=== PATIENT | male | born 1955 | race African-American/Black ===

== ENCOUNTER 2021-03-11 18:47 | Inpatient (IN) ==
[2021-03-11] MEDS ORDERED: ACETAMINOPHEN 500 MG TABLET PO STA (20:41)
[2021-03-11 20:45] LABS: Basophils # 0.1 10*3/uL (0.0-0.2); Basophils % 0.5 % (0.0-0.8); Hematocrit 48.1 VOL% (42.0-52.0); Hemoglobin 15.8 GM/DL (14.0-18.0); Immature Granulocytes % 0.5 %; Immature Granulocytes Absolute 0.08 #; Lymphocytes # 0.7 10*3/uL (1.4-4.0); Mean Corpuscular HGB Conc 32.8 GM/DL (32-36); Mean Corpuscular Volume 89.9 FL (87-102); Mean Platelet Volume 12.9 FL (9.6-12.0); Monocytes % 5.7 % (1.7-12.7); Neutrophils % 89.3 % (38.7-73.9); Platelet Count 179 T/CUMM (130-400); Red Blood Count 5.35 MC/CUMM (3.8-5.5); Red Cell Distribution Width 13.7 % (9.3-17.3); White Blood Count 16.4 T/CUMM (4-12)
[2021-03-11 21:01] LABS: INR 1.2; PT Patient Result 13.7 SECS (10.5-12.0); Partial Thromboplastin Time 29.3 SECS (23.8-32.1)
[2021-03-11 21:09] LABS: Albumin 3.6 G/DL (3.4-5.0); Bilirubin,Total 0.9 MG/DL (0.20-1.00); Calcium 9.8 MG/DL (8.5-10.1); Potassium 3.6 MMOL/L (3.5-5.1); Total Protein 7.8 G/DL (6.4-8.2)
[2021-03-11] MEDS ORDERED: SODIUM CHLORIDE 0.9% 3,000 ML IV STA (21:11)
[2021-03-11 21:14] LABS: Band Neutrophils 1 % (0-10); Eosinophils 1 % (0-10); Lymphocytes 6 % (20-55); Platelet Estimate Adequate; Segmented Neutrophils 86 % (50-85); Total Cells Counted 100
[2021-03-11] MEDS ORDERED: PIPERACILLIN/TAZOBACTAM 3,375 MG in SODIUM CHLORIDE 0.9% 100 ML IV STA (21:33)
[2021-03-11 22:34] LABS: Bacteria,Urine Many /HPF (Few); Bilirubin,Urine Negative (Negative); Blood, Urine Large mg/dL (Negative); Glucose,Urine (UA) Negative (Negative); Ketones,Urine Negative (Negative); Mucus,Urine Occasional /LPF (Occasional); Nitrite,Urine Positive (Negative); Protein,Urine 100 MG/DL; RBC,Urine 382 /HPF (0-4); Urine Appearance CLOUDY (Clear); Urine Color Amber (Yellow); Urine Specific Gravity 1.017 (1.001-1.035); Urine Urobilinogen < 2.0 EU/DL (0.2-1.0)
[2021-03-11] MEDS ORDERED: IBUPROFEN 600 MG TABLET PO PRN (23:36)
[2021-03-11] MEDS ORDERED: ONDANSETRON 4 MG/2 ML VIAL IV PRN (23:36)
[2021-03-12] MEDS: SODIUM CHLORIDE 0.9% 1,000 ML IV SCH ×3 (00:58→17:05)
[2021-03-12] MEDS: ACETAMINOPHEN 325 MG TABLET PO PRN ×4 (01:28→20:38)
[2021-03-12] MEDS: PIPERACILLIN/TAZOBACTAM 3,375 MG in SODIUM CHLORIDE 0.9% 100 ML IV SCH ×3 (05:19→20:40)
[2021-03-12 05:50] LABS: Basophils # 0.1 10*3/uL (0.0-0.2); Basophils % 0.3 % (0.0-0.8); Eosinophils % 0.1 % (0.00-10.9); Hemoglobin 15.2 GM/DL (14.0-18.0); Immature Granulocytes % 0.4 %; Immature Granulocytes Absolute 0.08 #; Lymphocytes # 1.3 10*3/uL (1.4-4.0); Lymphocytes % 7.4 % (21.2-54.2); Mean Corpuscular HGB Conc 31.7 GM/DL (32-36); Mean Corpuscular Volume 93.2 FL (87-102); Mean Platelet Volume 12.9 FL (9.6-12.0); Monocytes % 5.2 % (1.7-12.7); Neutrophils % 86.6 % (38.7-73.9); Platelet Count 148 T/CUMM (130-400); Red Blood Count 5.15 MC/CUMM (3.8-5.5); Red Cell Distribution Width 14.2 % (9.3-17.3); White Blood Count 17.9 T/CUMM (4-12)
[2021-03-12 06:07] LABS: Albumin 3.3 G/DL (3.4-5.0); Calcium 9.2 MG/DL (8.5-10.1); Osmolality,Calculated 283.4 MOS/KG (273-304); Potassium 3.9 MMOL/L (3.5-5.1); Total Protein 7.2 G/DL (6.4-8.2)
[2021-03-12] MEDS: PANTOPRAZOLE 40 MG VIAL IV SCH (09:04)
[2021-03-12] MEDS: METOPROLOL TARTRATE 25 MG TABLET PO SCH (11:23)
[2021-03-12] MEDS: POTASSIUM CHLORIDE 20 MEQ TABLET PO SCH (11:23)
[2021-03-12] MEDS: ROSUVASTATIN 10 MG TABLET PO SCH (20:36)
[2021-03-13] MEDS ORDERED: SELENIUM 200 MCG TABLET PO SCH (09:00)
[2021-03-13] MEDS: ACETAMINOPHEN 325 MG TABLET PO PRN ×2 (15:24→21:19)
[2021-03-13] MEDS ORDERED: PIPERACILLIN/TAZOBACTAM 3,375 MG in SODIUM CHLORIDE 0.9% 100 ML IV SCH (18:00)
[2021-03-13] MEDS: ALOE VERA PO SCH (19:57)
[2021-03-13] MEDS: MULTIVITAMIN (BEROCCA) TABLET PO SCH (19:58)
[2021-03-13] MEDS: POTASSIUM CHLORIDE 20 MEQ TABLET PO SCH (19:58)
[2021-03-13] MEDS: MULTIVITAMIN (CENTRUM) TABLET PO SCH (19:58)
[2021-03-13] MEDS: EZETIMIBE 10 MG TABLET PO SCH (19:58)
[2021-03-13] MEDS: MAGNESIUM OXIDE 400 MG TABLET PO SCH (19:58)
[2021-03-13] MEDS: METOPROLOL TARTRATE 25 MG TABLET PO SCH (19:58)
[2021-03-13] MEDS: PANTOPRAZOLE 40 MG VIAL IV SCH (19:58)
[2021-03-13] MEDS: SODIUM CHLORIDE 0.9% 1,000 ML IV SCH ×3 (19:59→20:01)
[2021-03-13] MEDS: PIPERACILLIN/TAZOBACTAM 3,375 MG in SODIUM CHLORIDE 0.9% 100 ML IV SCH ×2 (20:06→21:24)
[2021-03-13] MEDS: TAMSULOSIN 0.4 MG CAPSULE PO SCH (21:18)
[2021-03-13] MEDS: ROSUVASTATIN 10 MG TABLET PO SCH (21:19)
[2021-03-14] MEDS: PIPERACILLIN/TAZOBACTAM 3,375 MG in SODIUM CHLORIDE 0.9% 100 ML IV SCH ×3 (02:53→14:34)
[2021-03-14] MEDS: SODIUM CHLORIDE 0.9% 1,000 ML IV SCH ×2 (02:53→13:21)
[2021-03-14] MEDS: ACETAMINOPHEN 325 MG TABLET PO PRN ×4 (04:30→23:24)
[2021-03-14 05:12] LABS: Basophils # 0.1 10*3/uL (0.0-0.2); Basophils % 0.6 % (0.0-0.8); Eosinophils # 0.1 10*3/uL (0.0-0.87); Eosinophils % 1.4 % (0.00-10.9); Hematocrit 40.2 VOL% (42.0-52.0); Hemoglobin 13.3 GM/DL (14.0-18.0); Immature Granulocytes % 0.2 %; Immature Granulocytes Absolute 0.02 #; Lymphocytes # 1.5 10*3/uL (1.4-4.0); Lymphocytes % 18.5 % (21.2-54.2); Mean Corpuscular HGB Conc 33.1 GM/DL (32-36); Mean Corpuscular Volume 89.5 FL (87-102); Mean Platelet Volume 12.3 FL (9.6-12.0); Monocytes % 14.6 % (1.7-12.7); Neutrophils % 64.7 % (38.7-73.9); Platelet Count 161 T/CUMM (130-400); Red Blood Count 4.49 MC/CUMM (3.8-5.5); Red Cell Distribution Width 14.3 % (9.3-17.3)
[2021-03-14 05:38] LABS: Eosinophils 2 % (0-10); Lymphocytes 10 % (20-55); Platelet Estimate Adequate; Segmented Neutrophils 71 % (50-85); Total Cells Counted 100
[2021-03-14 05:48] LABS: Calcium 8.8 MG/DL (8.5-10.1); Osmolality,Calculated 277.7 MOS/KG (273-304); Potassium 3.6 MMOL/L (3.5-5.1)
[2021-03-14] MEDS: ALOE VERA PO SCH (09:05)
[2021-03-14] MEDS: TAMSULOSIN 0.4 MG CAPSULE PO SCH ×2 (09:09→16:06)
[2021-03-14] MEDS: PANTOPRAZOLE 40 MG VIAL IV SCH (09:09)
[2021-03-14] MEDS: POTASSIUM CHLORIDE 20 MEQ TABLET PO SCH (09:09)
[2021-03-14] MEDS: MULTIVITAMIN (CENTRUM) TABLET PO SCH (09:10)
[2021-03-14] MEDS: METOPROLOL TARTRATE 25 MG TABLET PO SCH (09:10)
[2021-03-14] MEDS: EZETIMIBE 10 MG TABLET PO SCH (09:10)
[2021-03-14] MEDS: MAGNESIUM OXIDE 400 MG TABLET PO SCH (09:10)
[2021-03-14] MEDS: MULTIVITAMIN (BEROCCA) TABLET PO SCH (09:10)
[2021-03-14] MEDS: MEROPENEM 500 MG in SODIUM CHLORIDE 0.9% 100 ML IV SCH ×2 (16:56→23:24)
[2021-03-14] MEDS: ROSUVASTATIN 10 MG TABLET PO SCH (21:11)
[2021-03-15] MEDS: SODIUM CHLORIDE 0.9% 1,000 ML IV SCH ×3 (01:15→20:53)
[2021-03-15 04:50] LABS: Basophils % 0.6 % (0.0-0.8); Eosinophils # 0.4 10*3/uL (0.0-0.87); Eosinophils % 5.6 % (0.00-10.9); Hematocrit 41.8 VOL% (42.0-52.0); Hemoglobin 13.5 GM/DL (14.0-18.0); Immature Granulocytes % 0.5 %; Immature Granulocytes Absolute 0.03 #; Lymphocytes # 2.1 10*3/uL (1.4-4.0); Lymphocytes % 32.4 % (21.2-54.2); Mean Corpuscular HGB Conc 32.3 GM/DL (32-36); Mean Corpuscular Volume 90.3 FL (87-102); Mean Platelet Volume 12.5 FL (9.6-12.0); Neutrophils % 45.9 % (38.7-73.9); Platelet Count 198 T/CUMM (130-400); Red Blood Count 4.63 MC/CUMM (3.8-5.5); Red Cell Distribution Width 14.3 % (9.3-17.3); White Blood Count 6.6 T/CUMM (4-12)
[2021-03-15 05:09] LABS: Calcium 8.4 MG/DL (8.5-10.1); Potassium 3.6 MMOL/L (3.5-5.1)
[2021-03-15] MEDS: MEROPENEM 500 MG in SODIUM CHLORIDE 0.9% 100 ML IV SCH ×2 (06:32→14:43)
[2021-03-15] MEDS: ACETAMINOPHEN 325 MG TABLET PO PRN ×3 (09:16→20:34)
[2021-03-15] MEDS: MULTIVITAMIN (CENTRUM) TABLET PO SCH (09:16)
[2021-03-15] MEDS: MULTIVITAMIN (BEROCCA) TABLET PO SCH (09:16)
[2021-03-15] MEDS: METOPROLOL TARTRATE 25 MG TABLET PO SCH (09:17)
[2021-03-15] MEDS: MAGNESIUM OXIDE 400 MG TABLET PO SCH (09:17)
[2021-03-15] MEDS: TAMSULOSIN 0.4 MG CAPSULE PO SCH ×2 (09:17→20:34)
[2021-03-15] MEDS: POTASSIUM CHLORIDE 20 MEQ TABLET PO SCH (09:17)
[2021-03-15] MEDS: ALOE VERA PO SCH (09:18)
[2021-03-15] MEDS: EZETIMIBE 10 MG TABLET PO SCH (09:18)
[2021-03-15] MEDS: PANTOPRAZOLE 40 MG VIAL IV SCH (09:22)
[2021-03-15] MEDS: ROSUVASTATIN 10 MG TABLET PO SCH (20:34)
[2021-03-16] MEDS: MEROPENEM 500 MG in SODIUM CHLORIDE 0.9% 100 ML IV SCH ×3 (00:03→15:24)
[2021-03-16] MEDS: POTASSIUM CHLORIDE 20 MEQ TABLET PO SCH (09:00)
[2021-03-16] MEDS: PANTOPRAZOLE 40 MG VIAL IV SCH (09:01)
[2021-03-16] MEDS: MAGNESIUM OXIDE 400 MG TABLET PO SCH (09:01)
[2021-03-16] MEDS: TAMSULOSIN 0.4 MG CAPSULE PO SCH ×2 (09:01→20:35)
[2021-03-16] MEDS: EZETIMIBE 10 MG TABLET PO SCH (09:01)
[2021-03-16] MEDS: MULTIVITAMIN (BEROCCA) TABLET PO SCH (09:01)
[2021-03-16] MEDS: MULTIVITAMIN (CENTRUM) TABLET PO SCH (09:01)
[2021-03-16] MEDS: METOPROLOL TARTRATE 25 MG TABLET PO SCH (09:01)
[2021-03-16] MEDS: SODIUM CHLORIDE 0.9% 1,000 ML IV SCH ×3 (09:02→20:35)
[2021-03-16] MEDS: ROSUVASTATIN 10 MG TABLET PO SCH (20:35)
[2021-03-16] MEDS: ACETAMINOPHEN 325 MG TABLET PO PRN (20:47)
[2021-03-17] MEDS: MEROPENEM 500 MG in SODIUM CHLORIDE 0.9% 100 ML IV SCH ×2 (00:07→07:49)
[2021-03-17 06:41] LABS: Basophils # 0.1 10*3/uL (0.0-0.2); Basophils % 1.1 % (0.0-0.8); Eosinophils # 0.3 10*3/uL (0.0-0.87); Eosinophils % 3.5 % (0.00-10.9); Hematocrit 42.7 VOL% (42.0-52.0); Hemoglobin 14.1 GM/DL (14.0-18.0); Immature Granulocytes % 0.3 %; Immature Granulocytes Absolute 0.03 #; Lymphocytes # 3.4 10*3/uL (1.4-4.0); Lymphocytes % 37.4 % (21.2-54.2); Mean Corpuscular Volume 89.7 FL (87-102); Mean Platelet Volume 12.2 FL (9.6-12.0); Monocytes % 9.6 % (1.7-12.7); Neutrophils % 48.1 % (38.7-73.9); Platelet Count 288 T/CUMM (130-400); Red Blood Count 4.76 MC/CUMM (3.8-5.5); White Blood Count 9.1 T/CUMM (4-12)
[2021-03-17 07:05] LABS: Calcium 9.1 MG/DL (8.5-10.1); Osmolality,Calculated 287.8 MOS/KG (273-304)
[2021-03-17] MEDS: SODIUM CHLORIDE 0.9% 1,000 ML IV SCH ×2 (08:44→15:26)
[2021-03-17] MEDS: MULTIVITAMIN (CENTRUM) TABLET PO SCH (08:45)
[2021-03-17] MEDS: MULTIVITAMIN (BEROCCA) TABLET PO SCH (08:45)
[2021-03-17] MEDS: MAGNESIUM OXIDE 400 MG TABLET PO SCH (08:45)
[2021-03-17] MEDS: EZETIMIBE 10 MG TABLET PO SCH (08:45)
[2021-03-17] MEDS: POTASSIUM CHLORIDE 20 MEQ TABLET PO SCH (08:45)
[2021-03-17] MEDS: TAMSULOSIN 0.4 MG CAPSULE PO SCH (08:45)
[2021-03-17] MEDS: PANTOPRAZOLE 40 MG VIAL IV SCH (08:46)
[2021-03-17] MEDS: METOPROLOL TARTRATE 25 MG TABLET PO SCH (08:46)
[2021-03-17] MEDS ORDERED: ERTAPENEM 1,000 MG in SODIUM CHLORIDE 0.9% 100 ML IV ONE (11:00)
[2021-03-17 11:31] VITALS: BP 141/86
== END 2021-03-17 15:25 | disposition home or self-care (01) | DRG 872 ==
LOC: N.ED 18:47 → N.EDINP 21:34 → N.TELES 23:00 → N.5E 03-15 22:03
PROVIDERS: ADMIT Family Medicine; ATTEND Family Medicine